=== PATIENT | female | born 1970 | race Caucasian/White ===

== ENCOUNTER 2023-05-03 07:32 | Outpatient (OUT) | payer BC, SELFPAY ==
[2023-05-03 08:41] LABS: Alanine Aminotransferase 28 U/L (14-59); Albumin Level 3.6 g/dL (3.4-5.0); Alkaline Phosphatase 69 U/L (46-116); Anion Gap 9.4; Aspartate Amino Transferase 17 U/L (15-37); BUN Creatinine Ratio 29.6; Bilirubin Total 0.6 mg/dL (0.2-1.0); Calcium 8.8 mg/dL (8.5-10.1); Carbon Dioxide 30.3 mmol/L (21.0-32.0); Chloride 104 mmol/L (98-107); Chol HDL Ratio 2.8; Cholesterol 230 mg/dL (<=200); Estimated GFR (African America >60 (>=60); Estimated GFR (Non-African Ame >60 (>=60); Globulin 3.6 g/dL; Glucose 90 mg/dL (74-106); HDL Cholesterol 83 mg/dL (40-60); Potassium 3.7 mmol/L (3.5-5.1); Sodium 140 mmol/L (136-145); Total Protein 7.2 g/dL (6.4-8.2); Triglycerides 57 mg/dL (<=150); VLDL CHOLESTEROL 11.4 mg/dL
== END 2023-05-03 07:33 | disposition home or self-care (01) ==
LOC: LAB 07:35
PROVIDERS: PCP Family Medicine; Visit Provider Family Medicine
DX: E78.2 Mixed hyperlipidemia (principal); I12.9 Hypertensive chronic kidney disease with stage 1 through stage 4 chronic kidney disease, or unspecified chronic kidney disease
CPT/HCPCS: 36415; 80053; 80061

== ENCOUNTER 2024-05-18 06:56 | Outpatient (OUT) | payer BC, SELFPAY ==
--- OUTSIDE RECORDS SUMMARY | 2024-05-18 07:02 | XMS_ITS | CCD ---
Author Organization [facility] Care Team Providers Care Deputy Sheriff Generalist Name Role Phone PHYSICIAN, DEFAULT Unavailable Unavailable PHYSICIAN, DEFAULT Unavailable Unavailable PHYSICIAN, DEFAULT Unavailable Unavailable PHYSICIAN, DEFAULT Unavailable Unavailable MARLEN, DR ALANIZ Admitting Unavailable MARLEN, DR ALANIZ Attending Unavailable MARLEN, DR ALANIZ Primary Care Unavailable CHIQUIYER, DR ALANIZ Admitting Unavailable CHIQUIYER, DR ALANIZ Attending Unavailable MARLEN, DR ALANIZ Primary Care Unavailable MARLEN, DR ALANIZ Consulting Unavailable CAMERON COCHRAN Admitting Unavailable CAMERON COCHRAN Attending Unavailable MARLEN, DR ALANIZ Primary Care Unavailable CAMERON COCHRAN Consulting Unavailable Alfredo Gee MD Primary Care Provider ALFREDO GEE Attending ALFREDO Vickers Referring Unavailable ALFREDO GEE Attending Unavailable ALFREDO GEE Attending Unavailable Alfredo Gee MD Primary Care Provider [phone] Alfredo Gee MD Primary Care Provider MARIANO BROWNLEE Referring Unavailable ALFREDO GEE Primary Care Unavailable Medications Current Medications Medication Drug Class(es) Dates Sig (Normalized) Sig (Original) calcium carbonate 1500 mg / cholecalciferol 500 unt oral capsule (1 source) Vitamin D Calcium Carb-Cholecalciferol 600-12.5 MG-MCG CAPS Take by mouth daily Active calcium citrate 1040 mg oral tablet (4 sources) calcium citrate 1040 MG tablet Take 1,200 mg by mouth in the morning and 1,200 mg before bedtime. Active cephalexin 500 mg oral capsule (4 sources) Cephalosporin Antibacterial Start: 07-14-2023 cephalexin (Keflex) 500 MG capsule Indications: History of unicondylar arthroplasty of left knee Take two caps evening prior to appointment, take two caps one hour prior to appointment 4 capsule 2 07/14/2023 Active cholecalciferol 0.025 mg oral capsule (5 sources) Vitamin D Cholecalciferol (VITAMIN D3) 1000 units CAPS Take by mouth 2 times daily Active take 1 capsule by mouth [facility] cholecalciferol (Vitamin D-3) 25 MCG (1000 UT) capsule Take 1,000 Units by mouth in the morning and 1,000 Units before bedtime. Active estradiol 0.1 mg/ml vaginal cream (1 source) Estrogen Start: 05-10-2024 estradiol (EST RACE VAGINAL) 0.1 MG/GM vaginal cream insert one inch of cream inside the vagina and place an additional dime size amount to the urethra and inner labia three nights per week. DO NOT use plastic applicator. 42.5 g 3 05/10/2024 Active Ginkgo biloba extract (5 sources) [facility] GINKGO BILOB A PO Take by mouth 2 times daily Active take 3 tablets by mouth in the [facility] Ginkgo Biloba 40 MG tablet Take 120 mg by mouth in the morning and 120 mg before bedtime. Active Gbfgsnqnzdu-Xgerbukge-Jfh C-Mn (GLUCOSAMINE CHONDR 500 COMPLEX PO) (1 source) Glucosamine-Jose Martin droit-Vit C-Mn (GLUCOSAMINE CHONDR 500 COMPLEX PO) Take by mouth 2 times daily Active losartan potassium 100 mg oral tablet (8 sources) Angiotensin 2 Receptor Loretta Sta rt: 3 End : 4 take 1 tablet by mouth once daily losartan (Cozaar) 100 MG tablet Indications: Primary hypertension (CMS/HCC) Take 1 tablet (100 mg) by mouth Daily 90 tablet 12/19/2023 Active Lutein (1 source) take 2 capsules by mouth once daily [facility] LUTEIN PO Take 2 capsules by mouth daily Active Misc Natural Products (Glucosamine Chond Double Str) tablet (5 sources) Misc Natural Pro ducts (Glucosamine Chond Double Str) tablet as directed Orally Active Misc Natural Pro ducts (Glucosamine Chond Double Str) tablet as directed Orally 0 Active Multiple Vitamin (MULTI ZURI MIN DAILY PO) (1 source) Multiple Vitamin (MULTI VITAMIN DAILY PO) Take by mouth 2 times daily Active Multiple Vitamins-Minerals ( Multi For Her 50+) tablet (5 sources) Multiple Vitamin s-Minerals (Multi For Her 50+) tablet 1 (one) time each day at the same time. Active Multiple Vitamin s-Minerals (Multi For Her 50+) tablet 1 (one) time each day at the same time. 0 Active nebivolol 10 mg oral tablet (8 sources) Start: 12-06-2023 End: 06-16-2024 take 1 tablet by mouth once daily nebivolol (Bystolic) 10 MG tablet Indications: Primary hypertension (CMS/HCC) Take 1 tablet (10 mg) by mouth Daily 90 tablet 1 12/19/2023 06/16/2024 Active Start: 08-23-2023 End: 11-21-2023 take 1 tablet by mouth once daily nebivolol (Bystolic) 10 MG tablet Indications: Essential hypertension (CMS/HCC) Take 1 tablet (10 mg) by mouth Daily 90 tablet 08/23/2023 11/21/2023 Active Start: 02-17-2023 End: 05-18-2023 take 1 tablet by mouth in the morning nebivolol (Bystolic) 10 MG tablet Indications: Essential hypertension (CMS/HCC) Take 1 tablet (10 mg) by mouth in the morning. 90 tablet 0 02/17/2023 05/18/2023 Active prasterone 25 mg oral tablet (1 source) Start: 03-30-2022 take 1 tablet under the tongue at bedtime dehydroepiandrosterone (DHEA) 25 MG tablet 1 tablet sublingual at bedtime 0 03/30/2022 Active vit A,C and K-lhhmbm-gsqmgols (Ocuvite) tablet (5 sources) vit A,C and E-raman tein-minerals (Ocuvite) tablet as directed Orally Active vit A,C and E-raman tein-minerals (Ocuvite) tablet as directed Orally 0 Active Completed/Discontinued Medications Medication Drug Class(es) Dates Sig (Normalized) Sig (Original) black cohosh extract 40 mg oral capsule (3 sources) End: 12-19-2023 take 2 tablets by mouth once daily Black Cohosh 40 MG capsule Take 2 tablets by mouth Daily 12/19/2023 Discontinued (Therapy completed) take 2 tablets by mouth once jaya ly Black Cohosh 40 MG capsule Take 2 tablets by mouth Daily Active Problems Active Problems Problem Classification Problem Date Documented Date Episodic/Chronic Administrative/social admission (4 sources) Encounter for pre-employment examination; Translations: [ENCOUNTER FOR PRE-EMPLOYMENT EXAM] Onset: 01-21-2022 Episodic Complications of surgical procedures or medical care (5 sources) Postsurgical menopause; Translations: [Asymptomatic postprocedural ovarian failure] Onset: 08-28-2019 01-19-2023 Chronic Essential hypertension (13 sources) Essential hypertension; Translations: [Essential (primary) hypertension] Onset: 06-13-2017 01-25-2023 Chronic Genitourinary symptoms and ill-defined conditions (2 sources) Urge incontinence of urine; Translations: [Urge incontinence] Onset: 05-10-2024 05-10-2024 Chronic Genitourinary symptoms and ill-defined conditions (9 sources) Proteinuria, unspecified; Translations: [Microalbuminuria] Onset: 07-20-2017 01-19-2023 Episodic Hypertension with complications and secondary hypertension (8 sources) Hypertensive chronic kidney disease with stage 1 through stage 4 chronic kidney disease, or unspecified chronic kidney disease; Translations: [Hypertensive renal disease] Onset: 07-21-2020 01-19-2023 Chronic Osteoarthritis (5 sources) Osteoarthritis of left knee joint; Translations: [Unilateral primary osteoarthritis, left knee] Onset: 05-19-2020 01-19-2023 Chronic Other connective tissue disease (5 sources) Artificial knee joint present; Translations: [Presence of unspecified artificial knee joint] Onset: 09-29-2020 01-19-2023 Chronic Other diseases of bladder and urethra (6 sources) Hypertrophy of bladder; Translations: [Other specified disorders of bladder] Onset: 03-29-2023 03-29-2023 Chronic Other screening for suspected conditions (not mental disorders or infectious disease) (2 sources) Patient encounter status; Translations: [Encounter for screening for lipoid disorders] 12-19-2023 Episodic Past or Other Problems Problem Classification Problem Date Documented Date Episodic/Chronic Abdominal hernia (10 sources) Umbilical hernia; Translations: [Umbilical hernia without obstruction or gangrene] Onset: 4 03-29-2023 Episodic Disorders of lipid metabolism (9 sources) Mixed hyperlipidemia; Translations: [Mixed hypercholesterolemia and hypertriglyceridemia] Onset: 2 Resolved: 4 Chronic Heart valve disorders (5 sources) Heart murmur; Translations: [Cardiac murmur, unspecified] Onset: 9 01-19-2023 Episodic Menopausal disorders (5 sources) Drug therapy status; Translations: [Hormone replacement therapy] Onset: 0 Resolved: 4 01-19-2023 Episodic Results Test Name Value Interpretation Reference Range Facility Cult,Urineon 05-11-2024 Cult,Urine Specimen Description .CLEAN CATCH URINE Special Requests Site: Urine Culture NO GROWTH Report Status FINAL 05/11/2024 Normal [facility] Comment on above: Performed By: #### U #### [facility] [address] [place], [place] [id number] Arboriculture Teacher: Allen River MD [facility] [address] [place] [address] Arboriculture Teacher: Julio Marcano MD [facility] URINALYSIS, WITH MICROS COPICon 05-10-2024 Interpretation and review of laboratory results [facility]normal [facility]T,UR Negative NEG [facility] BLOOD, URINE TRACE Abnormal NEG [facility] CLARITY, URINE Clear CLEAR [facility] COLOR Yellow YEL [facility] EPITHELIAL CELLS None [facility] GLUCOSE,SEMI-QNT,UR Negative NEG mg/dL [facility] are PT KETONES, URINE Negative NEG mg/dL [facility] LEUKOCYTE ESTERASE TRACE Abnormal NEG [facility] NITRITE,UR Negative NEG [facility] 6 5.0 - 9.0 [facility] e PT PROTEIN, SEMI-QNT,UR Negative NEG mg/dL [facility] SPEC. GRAVITY,UR 1.01 1.010 - 1.020 [facility] URINE RBC'S None [facility] WBC'S None [facility] Normal 0.0 - 1 .0 EU/dL [facility] Original Ordering Provider: MARIANO BROWNLEE [facility]inalysis w/ Microon 2024 Bilirubin, SemiQt,Ur Negative Normal NEG [facility] Comment on above: Performed By: #### U AMIC #### [facility] [address] [place] [address] Arboriculture Teacher: Julio Marcano MD Blood, Urine TRACE Abnormal NEG [facility] Comment on above: Performed By: #### U AMIC #### [facility] [address] [place] [address] Arboriculture Teacher: Julio Marcano MD Clarity (U) Clear Normal CLEAR [facility] Comment on above: Performed By: #### U AMIC #### [facility] [address] [place] [address] Arboriculture Teacher: Julio Marcano MD Color (U) Yellow Normal YEL [facility] Comment on above: Performed By: #### U AMIC #### [facility] [address] [place] [address] [place] [address] Arboriculture Teacher: Julio Marcano MD Epithelial cells LM Ql (Urine sed) None Normal 0-25 [facility] Comment on above: Performed By: #### U AMIC #### [facility] [address] [place] [address] [place], [place] [id number] Arboriculture Teacher: Julio Marcano MD Glucose Ql (U) Negative Normal NEG [facility] Comment on above: Performed By: #### U AMIC #### [facility] [address] [place] [address] [place], [place] [id number] Arboriculture Teacher: Julio Marcano MD Ketones Ql (U) Negative Normal NEG [facility] Comment on above: Performed By: #### U AMIC #### [facility] [address] [place] [address] Dr[place], [place] [id number] Arboriculture Teacher: Julio Marcano MD Leukocyte esterase Test strip Ql (U) TRACE Abnormal NEG [facility] Comment on above: Performed By: #### U AMIC #### [facility] [address] [place] [address] [place] [address] Arboriculture Teacher: Julio Marcano MD Nitrite,Ur Negative Normal NEG [facility] Comment on above: Performed By: #### U AMIC #### [facility] [address] [place] [address] Arboriculture Teacher: Julio Marcano MD PH,Ur 6.0 Normal 5.0-9.0 [facility] Comment on above: Performed By: #### U AMIC #### [facility] [address] [place], [place] [id number] Arboriculture Teacher: Julio Marcano MD Protein Ql (U) Negative Normal NEG [facility] Comment on above: Performed By: #### U AMIC #### [address] [place], [place] [id number] Arboriculture Teacher: Julio Marcano MD Spec. [place],Ur 1.010 Normal 1.010-1.020 [facility] Comment on above: Performed By: #### U AMIC #### [facility] [address] [place] [address] [place], [place] [id number] Arboriculture Teacher: Julio Marcano MD Urine RBC's None Normal 0-2 [facility] Comment on above: Performed By: #### U AMIC #### [address] [place] [address] Arboriculture Teacher: Julio Marcano MD Urine WBC's None Normal 0-5 [facility] Comment on above: Performed By: #### U AMIC #### [facility] [address] [place] [address] [place] [address] Arboriculture Teacher: Julio Marcano MD Urobilinogen,Ur Normal Normal 0.0-1.0 [facility] Comment on above: Performed By: #### U AMIC #### [address] [place], [place] [id number] Arboriculture Teacher: Julio Marcano MD Urinalysis with Microscopico n 05-10-2024 Bilirubin Ql (U) Negative NEGATIVE [facility] Clarity (U) Clear Clear [facility] Color (U) Yellow [facility] Epithelial cells LM.HPF (Urine sed) [#/Area] None [facility] Glucose Test strip (U) [Mass/Vol] Negative NEGATIVE mg/dL [facility] Hemoglobin Auto test strip Ql (U) TRACE Abnormal NEGATIVE [facility] Interpretation and review of laboratory results Abnormal [facility] Ketones (U) [Mass/Vol] Negative NEGATIVE mg/dL [facility] Leukocyte esterase Test strip Ql (U) TRACE Abnormal NEGATIVE [facility] Nitrite Ql (U) Negative NEGATIVE [facility] pH (U) 6.0 [pH] 5.0 - 9.0 [facility] Protein (U) [Mass/Vol] Negative NEGATIVE mg/dL [facility] RBC LM.HPF (Urine sed) [#/Area] None [facility] Specific gravity (U) [Rel density] 1.010 1.010 - 1.020 [facility] Urobilinogen Qn (U) Normal 0.0 - 1. 0 EU/dL [facility] WBC LM.HPF (Urine sed) [#/Area] None [facility] ALL LIPID PROFILE (FASTING)o n 05-03-2023 CHOL HDL RATIO 2.8 [facility] Comment on above: 3.3 - 4.4 LOW RISK 4.4 - 7.1 AVERAGE RISK 7.1 - 11.0 MODERATE RISK >11.0 HIGH RISK Cholesterol [Mass/Vol] 230 mg/dL High NINF - 200 mg/dL [facility] Cholesterol in HDL [Mass/Vol] 83 mg/dL High 40 - 60 mg/dL [facility] Comment on above: > or =60 mg/dl - LOW CARDIOVASCULAR RISK <40 mg/dl - HIGH CARDIOVASCULAR RISK Magnesium [Mass/Vol] 136.0 mg/dL [facility] Comment on above: <100 mg/dl OPTIMAL 100-129 mg/dl NEAR OR ABOVE OPTIMAL 130-159 mg/dl BORDERLINE HIGH 160-189 mg/dl HIGH >190 mg/dl VERY HIGH Magnesium [Mass/Vol] 11.4 mg/dL [facility] Triglyceride [Mass/Vol] 57 mg/dL NINF - 150 mg/dL [facility] CMP (CMP) (FOR REMOTE FH C USE)on 05-03-2023 Albumin [Mass/Vol] 3.6 g/dL 3.4 - 5.0 g/dL NO [facility] ALBUMIN GLOBULIN RATIO 1.0 [facility] ALP [Catalytic activity/Vol] 69 U/L 46 - 116 U/L [facility] ALT [Catalytic activity/Vol] 28 U/L 14 - 59 U/L [facility] Anion gap [Moles/Vol] 9.4 mmol/L [facility] AST [Catalytic activity/Vol] 17 U/L 15 - 37 U/L [facility] Bilirubin [Mass/Vol] 0.6 mg/dL 0.2 - 1 .0 mg/dL [facility] Calcium [Mass/Vol] 8.8 mg/dL 8.5 - 10. 1 mg/dL [facility] Chloride [Moles/Vol] 104 mmol/L 98 - 10 7 mmol/L [facility] CO2 [Moles/Vol] 30.3 mmol/L 21.0 - 32.0 mmol/L [facility] Creatinine [Mass/Vol] 0.54 mg/dL Low 0.55 - 1.02 mg/dL [facility] GFR/1.73 sq M.predicted CKD-EPI (S/P/Bld) [Vol rate/Area] >60 60 - PINF [facility] Globulin (S) [Mass/Vol] 3.6 g/dL [facility] Glucose [Mass/Vol] 90 mg/dL 74 - 106 mg/dL NO [facility] Potassium [Moles/Vol] 3.7 mmol/L 3.5 - 5.1 mmol/L [facility] Protein [Mass/Vol] 7.2 g/dL 6.4 - 8.2 g/dL NO [facility] Sodium [Moles/Vol] 140 mmol/L 136 - 145 mmol/L [facility] TBH EGFR-NON AF KENYAN >60 60 - PINF [facility] Urea nitrogen [Mass/Vol] 16.0 mg/dL 7.0 - 18.0 mg/dL [facility] Urea nitrogen/Creatinine [Mass ratio] 29.6 mg/mg [facility] No Panel Informationon 05-03 Interpretation and review of laboratory results Abnormal [facility] IV CONT RASTon 01-08-2024 CT ABDOMEN PELVIS WO IV CONTRAST CT of the abdomen and Pelvis CTDI is 27.51 mGy and DLP is 1200.45 mGy-cm. Technique: CT of the abdomen and pelvis performed without contrast. Reformatted sagittal and coronal images were also obtained. Findings: Comparison: No prior Lung bases: Unremarkable. No mass. No consolidation. Atelectasis is seen greater in the left base. ABDOMEN: Liver: Unremarkable. No mass. Gallbladder and bile ducts: Unremarkable. No calcified stones. No ductal dilation. Pancreas: Unremarkable. No mass. No ductal dilation. Spleen: Unremarkable. No splenomegaly. Adrenals: Unremarkable. No mass. Kidneys and ureters: No hydronephrosis or obstructing stone. Stomach and bowel: Small hiatal hernia is seen. Evaluation of the stomach is limited by under distention. No small bowel obstruction. No mucosal thickening. Intraperitoneal space: Unremarkable. No free air. No significant fluid collection. Bones/joints: Severe levoscoliosis is seen with the apex for at L2-3. Severe degenerative changes are seen at L5-S1 and there also is anterolisthesis of L5 on S1 that measures approximately 9 mm. Soft tissues: A periumbilical hernia is seen that measures approximately 13 mm in the area of the mouth. It contains fat. There are also bilateral inguinal hernias that contain fat.. Vasculature: Unremarkable. No abdominal aortic aneurysm. Lymph nodes: No bulky adenopathy PELVIS: Appendix: Normal appendix. Bladder: The bladder wall appears to be mildly thickened. In the anterior aspect of the bladder slightly to the right of midline there are 2 tiny foci of air reproductive: Unremarkable as visualized. IMPRESSION: Impression: No hydronephrosis or obstructing calcifications are seen. There are subtle small vague hypodensities seen that could relate to patient's state of hydration. 2 tiny foci of air are seen in the anterior bladder. The bladder wall is mildly thickened. No bowel obstruction, appendicitis or diverticulitis seen. ELECTRONICALLY SIGNED BY: Ramiro Chiu, DO Normal Not Available Comment on above: Order Comment: Patie nt paying thomas, please schedule KARMEN. QUANTIFERON TB GOLD PLUSon 1 03-25-2021 QuantiFERON Criteria Comment Normal [facility] Comment on above: Result Comment: Jesus tiFERON-TB Gold Plus is a qualitative indirect test for M tuberculosis infection (including disease) and is intended for use in conjunction with risk assessment, radiography, and other medical and diagnostic evaluations. The QuantiFERON-TB Gold Plus result is determined by subtracting the Nil value from either TB antigen (Ag) value. The Mitogen tube serves as a control for the test. Performed By: #### Q NTTB #### [facility] [address] [place] [address] Dr. Ivette Bruce QuantiFERON Incubation Incubation performed. Normal [facility] Comment on above: Performed By: #### Q NTTB #### [facility] [address] [place] [address] Dr. Ivette Bruce QuantiFERON Mitogen Value 6.10 IU/mL Normal [facility] Comment on above: Performed By: #### Q NTTB #### [facility] [address] [place] [address] Dr. Ivtete Bruce QuantiFERON Nil Value 0.00 IU/mL Normal [facility] Comment on above: Performed By: #### Q NTTB #### [facility] [address] [place] [address] Dr. Ivette Bruce QuantiFERON TB1 Ag Value 0.09 IU/mL Normal [facility] Comment on above: Performed By: #### Q NTTB #### [facility] [address] [place] [address] Dr. Ivette Bruce QuantiFERON TB2 Ag Value 0.03 IU/mL Normal [facility] Comment on above: Performed By: #### Q NTTB #### [facility] [address] [place] [address] Dr. Ivette Bruce QuantiFERON-TB Gold Plus Negative Normal Negative [facility] Comment on above: Result Comment: No r esponse to M tuberculosis antigens detected. Infection with M tuberculosis is unlikely, but high risk individuals should be considered for additional testing (ATS/IDSA/CDC Clinical Practice Guidelines, 2017). The reference range is an Antigen minus Nil result of <0.35 IU/mL. Chemiluminescence immunoassay methodology Performed By: #### Q NTTB #### [facility] [address] [place] [address] Dr. Ivette Bruce HEPATITIS B SURFACE ANTIBODY , QUANTon 01-22-2022 Hepatitis B Surf AB Quant >1000.0 Normal Immunity>9.9 [facility] Comment on above: Result Comment: Stat us of Immunity Anti-HBs Level Inconsistent with Immunity 0.0 - 9.9 Consistent with Immunity >9.9 Performed By: #### H EPBSRF #### [facility] [address] [place] [address] Dr. Ivette Bruce MMR IMMUNITYon 01-22-2022 Mumps Abs, IgG >300.0 Normal Immune >10.9 [facility] Comment on above: Result Comment: Nega tive <9.0 Equivocal 9.0 - 10.9 Positive >10.9 A positive result generally indicates past exposure to Mumps virus or previous vaccination. Performed By: #### M MRIMMU #### [facility] [address] [place] [address] Dr. Ivette Bruce Rubella Antibodies, IgG 11.60 index Normal Immune >0.99 [facility] Comment on above: Result Comment: Non- immune <0.90 Equivocal 0.90 - 0.99 Immune >0.99 Performed By: #### M MRIMMU #### [facility] [address] [place] [address] Dr. Ivette Bruce Rubeola Ab, IgG 29.2 AU/mL Normal Immune >16.4 [facility] Comment on above: Result Comment: Nega tive <13.5 Equivocal 13.5 - 16.4 Positive >16.4 Presence of antibodies to Rubeola is presumptive evidence of immunity except when acute infection is suspected. Performed By: #### M MRIMMU #### [facility] [address] [place] [address] Dr. Ivette Bruce VARICELLA IGG ABon 2 Varicella Zoster IgG 1722 index Normal Immune >165 [facility] Comment on above: Result Comment: Nega tive <135 Equivocal 135 - 165 Positive >165 A positive result generally indicates exposure to the pathogen or administration of specific immunoglobulins, but it is not indication of active infection or stage of disease. Performed By: #### V LAXMI #### [facility] [address] [place] [address] Dr. Ivette Bruce LIPID PROFILEon 01-04-2022 CHOL-HDL RATIO NORM SEE BELOW Normal [facility] Comment on above: Result Comment: 3.3 - 4.4 LOW RISK 4.4 - 7.1 AVERAGE RISK 7.1 - 11.0 MODERATE RISK >11.0 HIGH RISK Performed By: #### C MP, LIPID #### [facility] [address] [address] [address] Ivette Bruce Cholesterol [Mass/Vol] 217 mg/dL Critically high <=200 [facility] Comment on above: Performed By: #### C MP, LIPID #### [facility] [address] [place] [address] Dr. Ivette Bruce Cholesterol in HDL [Mass/Vol] 73 mg/dL Critically high 40-60 [facility] Comment on above: Performed By: #### C MP, LIPID #### [facility] [address] [place] [address] Dr. Ivette Bruce Cholesterol in LDL [Mass/Vol] 130.8 mg/dL Normal [facility] Comment on above: Performed By: #### C MP, LIPID #### [facility] [address] [place] [address] Dr. Ivette Bruce Cholesterol.total/Ch olesterol in HDL [Mass ratio] 3.0 {ratio} Normal [facility] Comment on above: Performed By: #### C MP, LIPID #### [facility] [address] [place] [address] Dr. Ivette Bruce HDL NORMAL > or = 60 mg/dl - LOW CARDIOVASCULAR RISK <40 mg/dl - HIGH CARDIOVASCULAR RISK Normal [facility] Comment on above: Performed By: #### C MP, LIPID #### [facility] [address] [place] [address] Dr. Ivette Bruce LDL CALC NORMAL SEE BELOW Normal [facility] Comment on above: Result Comment: <100 mg/dl OPTIMAL 100 - 129 mg/dl NEAR OR ABOVE OPTIMAL 130 - 159 mg/dl BORDERLINE HIGH 160 - 189 mg/dl HIGH >190 mg/dl VERY HIGH Performed By: #### C MP, LIPID #### [facility] [address] [address] [address] Ivette Bruce Triglyceride [Mass/Vol] 66 mg/dL Normal <=150 [facility] Comment on above: Performed By: #### C MP, LIPID #### [facility] [address] [address] [address] Ivette Bruce VLDL CALC 13.2 mg/dL Normal [facility] Comment on above: Performed By: #### C MP, LIPID #### [facility] [address] [place] [address] Dr. Ivette Bruce PROF 14(COMP METB)on 022 Albumin [Mass/Vol] 3.9 g/dL Normal 3.4-5.0 [facility] Comment on above: Performed By: #### C MP, LIPID #### [facility] [address] [place] [address] Dr. Ivette Bruce Albumin/Globulin [Mass ratio] 1.1 {ratio} Normal [facility] Comment on above: Performed By: #### C MP, LIPID #### [facility] [address] [place] [address] Dr. Ivette Bruce ALP [Catalytic activity/Vol] 65 U/L Normal 46-116 [facility] Comment on above: Performed By: #### C MP, LIPID #### [facility] [address] [place] [address] Dr. Ivette Bruce ALT [Catalytic activity/Vol] 23 U/L Normal 14-59 [facility] Comment on above: Performed By: #### C MP, LIPID #### [facility] [address] [place] [address] Dr. Ivette Bruce Anion gap [Moles/Vol] 11.6 mmol/L Normal [facility] Comment on above: Performed By: #### C MP, LIPID #### [facility] [address] [place] [address] Dr. Ivette Bruce AST [Catalytic activity/Vol] 13 U/L Critically low 15-37 [facility] Comment on above: Performed By: #### C MP, LIPID #### [facility] [address] [address] [address] Ivette Bruce Bilirubin [Mass/Vol] 0.5 mg/dL Normal 0.2-1.0 [facility] Comment on above: Performed By: #### C MP, LIPID #### [facility] [address] [address] [address] Ivette Bruce Calcium [Mass/Vol] 8.8 mg/dL Normal 8.5-10.1 [facility] Comment on above: Performed By: #### C MP, LIPID #### [facility] [address] [address] [address] Ivette Bruce Chloride [Moles/Vol] 104 mmol/L Normal 98-107 [facility] Comment on above: Performed By: #### C MP, LIPID #### [facility] [address] [place] [address] Dr. Ivette Bruce CO2 [Moles/Vol] 27.2 mmol/L Normal 21.0-32.0 [facility] Comment on above: Performed By: #### C MP, LIPID #### [facility] [address] [place] [address] Dr. Ivette Bruce Creatinine [Mass/Vol] 0.57 mg/dL Normal 0.55-1.02 [facility] Comment on above: Performed By: #### C MP, LIPID #### [facility] [address] [place] [address] Dr. Ivette Bruce EGFR-AF KENYAN >60 Normal >=[address] [facility] Comment on above: Performed By: #### C MP, LIPID #### [facility] [address] [place] [address] Dr. Ivette Bruce EGFR-NON AF KENYAN >60 Normal >=60 [facility] Comment on above: Performed By: #### C MP, LIPID #### [facility] [address] [place] [address] Dr. Ivette Bruce Globulin (S) [Mass/Vol] 3.4 g/dL Normal [facility] Comment on above: Performed By: #### C MP, LIPID #### [facility] [address] [address] [address] Ivette Bruce Glucose [Mass/Vol] 89 mg/dL Normal 74-106 [facility] Comment on above: Performed By: #### C MP, LIPID #### [facility] [address] [address] [address] Ivette Bruce Potassium [Moles/Vol] 3.8 mmol/L Normal 3.5-5.1 [facility] Comment on above: Performed By: #### C MP, LIPID #### [facility] [address] [address] [address] Ivette Bruce Protein [Mass/Vol] 7.3 g/dL Normal 6.4-8.2 [facility] Comment on above: Performed By: #### C MP, LIPID #### [facility] [address] [address] [address] Ivette Bruce Sodium [Moles/Vol] 139 mmol/L Normal 136-145 [facility] Comment on above: Performed By: #### C MP, LIPID #### [facility] [address] [address] [address] Ivette Bruce Urea nitrogen [Mass/Vol] 16.0 mg/dL Normal 7.0-18.0 [facility] Comment on above: Performed By: #### C MP, LIPID #### [facility] [address] [place] [address] Dr. Ivette Bruce Urea nitrogen/Creatinine [Mass ratio] 28.1 mg/mg Normal [facility] Comment on above: Performed By: #### C MP, LIPID #### [facility] [address] [address] [address] Ivette Bruce Coding Summary.on 09-25-2020 Coding Summary. CD:[id number] Gh0bWw+PGhlYWQ+PE1FV JXdY37jhXBivQ6JW2bWU W1PCCOHZFCRMH8SXX1ko OC8UAvdZ9RbgpYx RscxlQVdYI86QZe3BYU4 kBowKMgppD1pnZEeR4z3 OzHbZV33yI44RHrgYWNm MeK1YsBkcnavsIHl G5ejBhVnyHMxGve+PHRh YmxlIHdpZHRoPScxMDAl XtKnaIiaNO7nUj7yZPNp LWNvbGxhcHNlOiBj s0keOVXlTLerOU7xjBat H7EqeTQ3DHSju4j8Ge29 dHI+KOEbAYZ3uRjkINoc b874BeMfj3skNSJ4 wNEwJHejIQO6Q41kh4F2 HFWyASJwZTO0oKT0qE0a cJobvxvnI3GctKMpSmE4 HWO0uKZyvC6kpPyv pvtvsU7eWff+B70RHZ1A RVHNET6VCmq9H2HfTuoa dHI+LH47QZJqAG66wDAn fVVcl0auqTt3HnMd EKDsELQ2cPziQInau7Gy PHZvL21umOWtk3N8AJDw bCqrqXDvQwHgoAF9mS3o DYfyrugba0tenade Ifwwq5zjyi36vH28Q48h BAauYWHtIGL6HKDsOHAu oRdqgf5zvG4qMn8+IDxj g2elh0eaaFe7HpEj FVItbaEujDpcUZX0f9Rv Ee57K4DefKfhv9YsAlg2 fb83xSHvt9Z2xGB4JVyk FZWelP1cWNkkTrD5 XYTbIeEdsH40iAKrHHot Pu3yoGwdnJdeFW6wXRMo ykhbLNHpoD5gMAMmgMKn tLawPW6aUWKssudq l680HcIqPFE3KYUqxSZe O7MuvS8yIdHbVCLxIBOj Z2BbdBDqUIcvS674DFba BgE4BLDpigXpP6Jp VVVqrExqIyE0t4N3Py0Q w3PcpmwzWOZ9UDfyOLP0 AkO2BiHtJaO3R0WzIud5 WUTeeRejWQ8zS9Md WULtqpxturbejYR6HDHs JBJgkJ53iRHfJYshSw6t l1M7n738KCJvIUUwuD13 Qo4azGkdXTBriHTA hR5thejmk4gvkmatOaWr ANTnYCy4HXn9LKKquDkj VcZcEQZ7SdE5EAA0cZVx wJ4mqHafykendF0d Oyc+P15frG1uFCE6SNV9 nirbSAEregLqDL52LR76 R9HvPsihrKDcjCZ+PGRp oxRkhJtqBA6gGkZf x1sgd4JfAIdtK4KbFBQm WJmwCdb5LMMnGQF6sMD1 eD1dAZNzIEnvx9R0wOS5 H3UvtbQxmt5nq8mr SLIjRVrtI77tbXOhb3F0 JDVmbHN2XOOqhLntSsJd yU01Bdx+STPgrHmjj9Mk Dfbpp8djg6iyxOi0 IjMwJSIgdmFsaWduPSJ0 h9AuAh51U45nRSpcYKTt CMZpKRQzSEFwdWdimu8q cZ4mQj7+PGNvbCB3 eFW7nA9hHLUeFqR1UPrm K525VyAwjZNnVqtww2ll k9vmpIu4UgQpXSDknwGp hKroXQP9p9BkPb27 Q50uOEtxPUEkZNNcWZQi NYTkxCdoqv3knW2dCs9+ FR6ke3afly44hK50tXD+ CMCxVEM8zLtfNKvw DZUsaI8uYRveZdM5DZSv ToHmuU38vWNbNJuhEh5c lWfjyCkoEL2sOXWhfjxi r852SvStg7ylEHPd tFChNWecOTS9B02hh0O7 NFEhJQAuWJU9xUB9bZ4f bGlnbjogbGVmdDsgdmVy lWltTGapJRhlB825 IHRvcDsnPlBhdGllbnQg MjCwJPj5A9InKsx1TNYg mBoxCF8xdLCjOApoZm7f cXfraVwoVN3hSVWp wiaiy165TuPcv4oiCGIq gEWlEFgkMDM2P13lq4Y9 XPNxMLYlKZT1gDY4iF3i bGlnbjogbGVmdDsg toFguHlkLBqlXQdlJ726 IHRvcDsnPkJpcnRoIERh dHC0DN76NG27iEPoy6W1 cWC9Q2LlHRAazusb fwolgPC4RAYqMTKtwG69 Yt3tgQxcBg7yFCJyUWF9 JAWheFPfE7JhdD9cLrYs IWJmSBZeE4QejHXt PTlfX960VMrlSeP1MJIb qyVeL1OzJGEihYmeQlQ6 z4M4Xg1BM2W0ET84BW18 vNNeh5N3uCB5I7Qz VQRgcufksobbsYV2YZRb FLWhpA18Wr8smIxqSx7a EIMxVQI1FXQdcBCvN4Qv rY5mRsVuCRHxPTFa C9ZzfPAbXHruM523FLrj ZuZ6IIMcqlSvT2NrCZAj wDeuTaF4g4U8Iw5HGRz4 UN91XA67oEHzc5S6 sER4R5UmARKwojorhzxj oRJ7CAGzZCMkyV35Oa1y yZyhFf6kJYTpTXG1ROPz oCNpM5GbyA2yJhFf QFCkIOLuG6EjgSHdEHmx D631JBlgOzC1RLFrzlVm A3NbQQRwbAyrMlF0r8J5 Yj9NYHMaSD27ZWZ2 wUD3FL51TZ94D0UwMpma dGFibGU+PHRhYmxlIHdp ZHRoPScxMDAlJyBzdHls EH0tVv3fTWRwPQTf bFapnFPaYjRhj0gePCRz KKzaHR5heXytE3QxvJR0 FSZzx6t6Nu88F83bR4Yu dXA+XDUapAO3jHI8 aB4kOzShIzQ4QArcA701 QcRfiRRwUssqr9rpy3lt bAe4AxD8WPEempVamDof GAW3x7CdXs32Q80h IHdpZHRoPSIxNSUiIHZh tKfrbr8jbY9mDz8+PGNv sHJ7hMD0sH9bAhXkEpV8 ESixO759YmRddTQs Bgiev9wft4dxjXi3GuTh SYRypaYsvRbkVGF9o1Dw Cw68B4TunPesn1PxMdo5 rp68uKXcq4J6xMG9 V4OvLHAwzemigUJlnRzt PO2cLOHucqyvTKKvfS9y EBHeM0g3OcQbZnD4GUpf O5XrpxF8ADQjtVUs XBuuHJS5F47rx6X5SXEu ZIRqABQ4gII1wG3zfNgz bjogbGVmdDsgdmVydGlj OKkhKGtiD640WOFl cKciFWDthE3fGYSvvOLx dXzxTF8oYLAwjusfHr1U N6fBEBmOHVNdAJ2SXhnX BD73BG28wRXuo9A3 sXA8T0ZdUTLgxbkyvyay nMV5KFYgVZStaK65tVVa LOvwRf6cm1O9n429IGNo XCMthI34Xs3usTuf EEQucTDKbH8lidnmm4dj cgzuWmZgPYVcHNh0SBz0 DTQdbWloHbRcHCR1TiX0 ELH5hDQyzL7izRnk hzpvlJ3gIoq+MDEvMTYv MQs1AmvzfLG+PHRkIHN0 tBqcXSrhNHPewG7xCEGy M1y7RrBxPdX0GDkq X5EmTSMwrpdzZi82zR9p WjFgWtA0VFpwQ8KlblJ4 ZOZrwJWiWDprMGG7A43l g4S5OYBtISCcEEX5 eRX4gV5caDednoxigDKv dDsgdmVydGljYWwtYWxp X985TUBtqLseRdT9SGdo KVGeCN45AR26pLYg b9F8iYO7U8JfUHRbsnst fvdbfTF9FPGbOJTgiW22 vYCqGFnlWu4mk1N7l401 HBQkPDOweR01If3w dYxiPAJdaTACbQ0elfow a0ardtdwEcNaKQDcJXp4 NRg8YBTzdCpoDtCwCOM6 NvK1QBC8tBAvaA1y gAmeskydbY8aIjo+RmVt KQzsAF54TO20nULhh4R6 wMF8E7EeHFSowctmicop uQO8PGFaYMMklA74 iIRrQJbqSn8mt6L8a740 MDEiEGHzbE86An9qqCrw KAXnhZMSpY4xojqhm0to cjogIzAwMDAwMDt0 DWi6NYMdaAylXbDsHVH4 XcA4WSD5hIRbaR4crZsu wglgqN2kFqu+C8U3sTZ3 aWVudDwvdGQ+PC90 pm28Y0YqCrpjWws4HOUy CFJ0xWZ1qQ4pTNNxKNxb g2H2kKM3R0PsbtPqpq3p i0imXEOePKwmU84q nNHxb8D4NZPvtJN1RMIk eTycJqFglS69Ikz+PGNv hJnkw8DqOdplf5ccl2yt vPv1ZjFkIVBwoyRr tVhsCJJ7w5ZjWz00I40d IHdpZHRoPSIzMCUiIHZh iGwpfz7mmA0nEf4+PGNv pPW7cFU2eW8tXhKa SsM6QWceW745VpUpqVNm Rhwtw9lnl5nrfJw9LcMt OPPbexRieLvoRNN0g1Fi Wt82C8VzwZxyk6Rq Kes7qy34iNQwe7J4gCI0 Z8NcOPYedwrpzSYpiZzl ES4bGFBqynymVNZixX9z YTGfW7j3QtCvCzX3 PVyfI5PpkxG0ANGqpZJu SXIrqCNKtU0rimbva1vt qlqnQeGdJMPuTHc1MEm3 LWFsaWduOiBsZWZ0 JkC2YLQ4vNVfyN4jsGcp jzwuwB5qUgx+JBb2f7th pEHmQQ7rlQB3AN04DW20 cQRlw7B8gFI2H9Qw CTEjoskbnqrpaEG0UZQu SYNxaK52Pl6vnEwuJh0h WMUyWGF1NXBjqWYsC6Zl qT3hXlIzZQCrJBIt N4ZtoXVvDNyrG581JZba ClY4ULBqbpUuQ9UvNJAj dCfqKtJ8f9F7Ep9EXQ97 VA23HI19qHNux2I6 oJY5X0DoQKFhxotunhab fNE8VGLzKCJwsC46Fy8h sUsaUk3bMTLiUBA8XVOo iBPiG4GuhY6uVcYy OIJtDMBwV0OwvQYoWSym I669KCnzYwB2IFXvmxOz R4EmGHLgeRxuBqY7j8K0 Rc4QPo46TG74TF49 jWMin1G1tZZ8I3GxDKCq ltcuapbyuYL1JGTlTVNj wM17Ej8czDmyKc7pNNFe YZJ7VFOchQTqI8Nu dD0jFjHjPQDpUBJxC5Ad xIEeFOfyO791AOvvKmN3 MIHxzlVdX2XnQJJjvXva MyQ9b5D4Tk5UBIul tht3H6XjZlungJC+PC90 VNZdSM81qDBgpPPqg8dd cOt0RzElHUIlAHI3mHdp CZsbf4MpWXAdY40j bGFw (more content not included)... Normal [facility] Consent for Treatmenton Consent for Treatment [id number] Normal [facility] XR Chest 2 Viewson XR Chest 2 Views Exam Date/Time: 09/23/2020 12:29 EDT Reason for Exam: LEFT KNEE OA, PRE OP Report IMPRESSION: NO EVIDENCE OF ACTIVE CHEST DISEASE. CLINICAL HISTORY: LEFT KNEE OA, PRE OP. COMMENT: The heart is normal in size. The mediastinum is unremarkable. The lungs appear clear. No infiltration nor pleural effusion is evident. There is dextroscoliosis of the thoracic spine. FINAL REPORT Dictated: 09/24/2020 7:38 am Zach Kline M.D. Signed (Electronic Signature): 09/24/2020 7:38 am Signed by: Zach Kline M.D. Transcribed by: EDGAR Technologist: SON Normal [facility] Auto Diffon 09-23-2020 Basophils/100 WBC (Bld) 0.6 % Normal 0.0-2.0 [facility] Comment on above: Order Comment: Order Added by Discern Expert. Performed By: #### 1 [id number], [id number], [id number], [id number] #### [facility] [address] [place] [address] Basophils/Leukocytes Auto (Bld) [Pure # fraction] 0.0 E9/L Normal 0.0-0.2 [facility] Comment on above: Order Comment: Order Added by Discern Expert. Performed By: #### 1 [id number], [id number], [id number], [id number] #### [facility] [address] [place] [address] Eosinophils/100 WBC (Bld) 1.9 % Normal 0.0-8.0 [facility] Comment on above: Order Comment: Order Added by Discern Expert. Performed By: #### 1 [id number], [id number], [id number], [id number] #### [facility] [address] [place] [address] Eosinophils/Leukocyt es Auto (Bld) [Pure # fraction] 0.1 E9/L Normal 0.0-0.5 [facility] Comment on above: Order Comment: Order Added by Discern Expert. Performed By: #### 1 [id number], [id number], [id number], [id number] #### [facility] [address] [place] [address]662 Lymphocytes/100 WBC (Bld) 29.8 % Normal 14.0-50.0 [facility] Comment on above: Order Comment: Order Added by Discern Expert. Performed By: #### 1 [id number], 1077286, 8466113, [id number] #### [facility] [address] [place] [address] Lymphocytes/Leukocyt es Auto (Bld) [Pure # fraction] 2.0 E9/L Normal 1.0-4.0 [facility] Comment on above: Order Comment: Order Added by Raphael Expert. Performed By: #### 1 [id number], 6140069, 7925156, [id number] #### [facility] [address] [place] [address] Monocytes/100 WBC (Bld) 7.1 % Normal 4.0-14.0 [facility] Comment on above: Order Comment: Order Added by Discern Expert. Performed By: #### 1 [id number], 0760987, 5787791, [id number] #### [facility] [address] [place] [address]7814 Monocytes/Leukocytes Auto (Bld) [Pure # fraction] 0.5 E9/L Normal 0.2-1.0 [facility] Comment on above: Order Comment: Order Added by Discern Expert. Performed By: #### 1 [id number], 9098716, 4944734, [id number] #### [facility] [address] [place] [address] 32343 Neutrophils/100 WBC (Bld) 60.6 % Normal 36.0-75.0 [facility] Comment on above: Order Comment: Order Added by Raphael Expert. Performed By: #### 1 [id number], 2648551, 1451611, [id number] #### [facility] [address] [place] [address] 49096 Neutrophils/Leukocyt es Auto (Bld) [Pure # fraction] 4.1 E9/L Normal 2.0-7.5 [facility] Comment on above: Order Comment: Order Added by Discern Expert. Performed By: #### 1 [id number], 9175198, 7003875, 7125687 #### [facility] [address] [place] [address] BMPon 09-23-2020 Anion gap [Moles/Vol] 12 mmol/L Normal 6-16 [facility] Comment on above: Performed By: #### 1 [id number], 5589219, 5574195, 5720342 #### [facility] [address] [place] [address] Calcium [Mass/Vol] 9.4 mg/dL Normal 8.9-11.1 [facility] Comment on above: Performed By: #### 1 [id number], 7319536, 2949102, 2635586 #### [facility] [address] [place] [address] Chloride [Moles/Vol] 101 mmol/L Normal 101-111 [facility] Comment on above: Performed By: #### 1 [id number], 8481015, 6913458, 3660814 #### [facility] [address] [place] [address] CO2 [Moles/Vol] 30 mmol/L Normal 21-31 [facility] Comment on above: Performed By: #### 1 [id number], 4149431, 4122035, 5832900 #### [facility] [address] [place] [address] Creatinine [Mass/Vol] 0.5 mg/dL Normal 0.5-1.3 [facility] Comment on above: Performed By: #### 1 [id number], 5511292, 6960704, 6213777 #### [facility] [address] [place] [address] Glucose [Mass/Vol] 97 mg/dL Normal 55-199 [facility] Comment on above: Result Comment: If t his glucose result represents a fasting glucose, interpretation should refer to the following reference range: 55-99 mg/dL Performed By: #### 1 [id number], 2667362, 8374182, 2792987 #### [facility] [address] [place] [address] Potassium [Moles/Vol] 3.6 mmol/L Normal 3.5-5.3 [facility] Comment on above: Performed By: #### 1 [id number], 7538706, 5880843, 6166544 #### [facility] [address] [place] [address] Sodium [Moles/Vol] 139 mmol/L Normal 135-145 [facility] Comment on above: Performed By: #### 1 4769274, 8051480, 3828307, 2230732 #### [facility] [address] [place] [address] Urea nitrogen [Mass/Vol] 14 mg/dL Normal 5-21 [facility] Comment on above: Performed By: #### 1 [id number], 3766304, 5427547, 4794067 #### [facility] [address] [place] [address] Urea nitrogen/Creatinine [Mass ratio] 28 No Units High 10-20 [facility] Comment on above: Performed By: #### 1 [id number], 2340893, 9166986, 7323827 #### [facility] [address] [place] [address] CBC w/ Auto Diffon 1 Erythrocyte distribution width (RBC) [Ratio] 12.9 % Normal 10.9-14.2 [facility] Comment on above: Performed By: #### 1 [id number], 4810950, 3956764, 2721649 #### [facility] [address] [place] [address] Hematocrit (Bld) [Volume fraction] 38.8 % Normal 34.0-46.0 [facility] Comment on above: Performed By: #### 1 3471337, 3531605, 9949124, 1461345 #### [facility] [address] [place] [address] Hemoglobin (Bld) [Mass/Vol] 13.0 g/dL Normal 12.0-16.0 [facility] Comment on above: Performed By: #### 1 5239385, 6720061, 1845801, 2045776 #### [facility] [address] [place] [address] MCH (RBC) [Entitic mass] 29.3 pg Normal 27.0-34.0 [facility] Comment on above: Performed By: #### 1 2351458, 9706568, 1998593, 0033978 #### [facility] [address] [place] [address] MCHC (RBC) [Mass/Vol] 33.5 g/dL Normal 31.4-36.0 [facility] Comment on above: Performed By: #### 1 2568180, 3546896, 9415291, 0986923 #### [facility] [address] [place] [address]38 MCV (RBC) [Entitic vol] 87.4 fL Normal 80.0-100.0 [facility] Comment on above: Performed By: #### 1 [id number], 8983907, 8431172, 6429615 #### [facility] [address] [place] [address] Platelet mean volume (Bld) [Entitic vol] 10.5 fL Normal 6.4-10.8 [facility] Comment on above: Performed By: #### 1 [id number], 4566248, 9421216, 2628436 #### [facility] [address] [place] [address] Platelets (Bld) [#/Vol] 185.0 E9/L Normal 150.0-500.0 [facility] Comment on above: Performed By: #### 1 8129177, 7312659, 0327873, 5225893 #### [facility] [address] [place] [address] RBC (Bld) [#/Vol] 4.4 E12/L Normal 4.3-5.9 [facility] Comment on above: Performed By: #### 1 [id number], 2106559, 6213757, [id number] #### [facility] [address] [place] [address] WBC corrected for nucl RBC Auto (Bld) [#/Vol] 6.7 E9/L Normal 4.0-11.0 [facility] Comment on above: Performed By: #### 1 [id number] #### [facility] [address] [place] [address] COVID-19 ([facility])on 09-23-2020 SARS-CoV-2 (COVID-19) RNA JORY+probe Ql (Unsp spec) Not detected Normal Not Detected [facility] Comment on above: Result Comment: This test result should be correlated with clinical presentations and medical history by a healthcare provider to determine its clinical significance. This assay was performed by a reverse transcriptase real-time polymerase chain reaction (rt PCR) method on the [employer] system. This test has been authorized only for the detection of nucleic acid from SARS-CoV-2, not for any other viruses or pathogens. This test has not been FDA cleared or approved. This test has been authorized by FDA under an Emergency Use Authorization (EUA). This test is only authorized for the duration of time the declaration on that circumstances exist justifying the authorization emergency use of in vitro diagnostic tests for detection and/or diagnosis of COVID-19 infection under section 564 (b) (1) of the Act, 21 U.S.C. 360 bbb-3 (b) (1), unless authorization is terminated or revoked sooner. Performed By: #### 2 [id number] #### [facility] [address] [place] [address] SARS-CoV-2 (COVID-19) RNA JORY+probe Ql (Unsp spec) Pass Normal Pass [facility] Comment on above: Performed By: #### 2 [id number] #### [facility] [address] [place] [address] Specimen source Nom (Unsp spec) Nasal Normal [facility] Comment on above: Performed By: #### 2 [id number] #### [facility] [address] [place] [address] Consent for Treatmenton Consent for Treatment [id number] Normal [facility] eGFRon 09-23-2020 GFR/1.73 sq M.predicted among blacks MDRD (S/P/Bld) [Vol rate/Area] mL/min/{1.73_m2} Normal >=59 [facility] Comment on above: Order Comment: Order added by Discern Expert. Result Comment: eGFR is race adjusted. AA=. Performed By: #### 1 [id number] #### [facility] [address] [place] [address] GFR/1.73 sq M.predicted among non-blacks MDRD (S/P/Bld) [Vol rate/Area] mL/min/{1.73_m2} Normal >=59 [facility] Comment on above: Order Comment: Order added by Discern Expert. Result Comment: Film [employer]placement Orderer suzette kidney disease could be indicated at eGFR's of less than 60 mL/min/1.73m2. Kidney failure is indicated at less than 15 mL/min/1.73m2. Performed By: #### 1 [id number] #### [facility] [address] [place] [address] COVID-19 ([facility] [place]on 09-19-2020 Employed in Healthcare Unknown Normal [facility] Comment on above: Performed By: #### 2 [id number] #### [facility] [address] [place] [address] First Test Unknown Normal [facility] Comment on above: Performed By: #### 2 [id number] #### [facility] [address] [place] [address] Hospitalized? NO Normal [facility] Comment on above: Performed By: #### 2 [id number] #### [facility] [address] [place] [address] ICU NO Normal [facility] Comment on above: Performed By: #### 2 [id number] #### [facility] [address] [place] [address] ? NO Normal [facility] Comment on above: Performed By: #### 2 [id number] #### [facility] [address] [place] [address] Resides in a Congregate Care Setting NO Normal [facility] Comment on above: Performed By: #### 2 [id number] #### [facility] [address] [place] [address] Symptomatic as defined by [facility] NO Normal [facility] Comment on above: Performed By: #### 2 [id number] #### [facility] [address] [place] [address] Physician Orderon 08-06-2020 Physician Order [id number]#[id number]:127 Normal [facility] Coding Summaryon 11-02-2019 Coding Summary CODING DATE: 11/02/2019 [facility] STATUS: Home PAYOR: Commercial Insurance ADMIT DX: REASON FOR VISIT DX: R50.9 Fever, unspecified R43.2 Parageusia R43.0 Anosmia FINAL DX: PRINCIPAL: U07.1 2019-nCoV acute respiratory disease SECONDARY: PYMT PROC APC STAT DESCRIPTION DOCTOR NAME DATE NOTE: The code number assigned matches the documented diagnosis and / or procedure in the patient's chart. However, the narrative phrase printed from the coding software may appear abbreviated, or result in slightly different terminology. Coded By: Ashley Lopez Date Saved: 11/02/2019 03:25 pm [facility] Consent Formson 11-01-2019 Consent Forms [id number] #[id number] [facility] Provider [place] 10-31-2019 Provider Orders [id number] #1.00OTGTIFF Normal [facility] 2019 Novel Coronavirus (CoVI D-19), JORY LCon 10-30-2019 SARS-CoV-2, JORY (COVID-19) LC Detected Abnormal Not Detected [facility] Comment on above: Order Comment: [id number] 1 Result Comment: This test was developed and its performance characteristics determined by [employer]. This test has not been FDA cleared or approved. This test has been authorized by FDA under an Emergency Use Authorization (EUA). This test is only authorized for the duration of time the declaration that circumstances exist justifying the authorization of the emergency use of in vitro diagnostic tests for detection of SARS-CoV-2 virus and/or diagnosis of COVID-19 infection under section 564(b)(1) of the Act, 21 U.S.C. 360bbb-3(b)(1), unless the authorization is terminated or revoked sooner. When diagnostic testing is negative, the possibility of a false negative result should be considered in the context of a patient's recent exposures and the presence of clinical signs and symptoms consistent with COVID-19. An individual without symptoms of COVID-19 and who is not shedding SARS-CoV-2 virus would expect to have a negative (not detected) result in this assay. Performed At: [facility] [address] [place] [address] [place] [id number] Ofe Cash MD Ph:[phone] Results Called To Dr. Gee's office at [phone] By RR On 10/30/2019 21:00:01 EDT. Not able to reach or page Physician. Contacted Olga RN [facility] Administrator at 10/30/2019 21:07:55 EDT. This test was developed and its performance characteristics determined by [employer]. This test has not been FDA cleared or approved. This test has been authorized by FDA under an Emergency Use Authorization (EUA). This test is only authorized for the duration of time the declaration that circumstances exist justifying the authorization of the emergency use of in vitro diagnostic tests for detection of SARS-CoV-2 virus and/or diagnosis of COVID-19 infection under section 564(b)(1) of the Act, 21 U.S.C. 360bbb-3(b)(1), unless the authorization is terminated or revoked sooner. When diagnostic testing is negative, the possibility of a false negative result should be considered in the context of a patient's recent exposures and the presence of clinical signs and symptoms consistent with COVID-19. An individual without symptoms of COVID-19 and who is not shedding SARS-CoV-2 virus would expect to have a negative (not detected) result in this assay. Performed At: [facility] [address] [facility] [place] [id number] Ofe Cash MD Ph:[phone] Performed By: #### 6 [id number] #### [facility] (DEFAULT) [address] [place] [address] Provider [place] 10-30-2019 Provider Orders [id number] #[id number] Normal [facility] Encounters Encounter Date Encounter Type Care Provider Facility Start: 05-10-2024 End: 05-10-2024 ambulatory MARIANO BROWNLEE [facility] Start: 05-10-2024 End: 05-10-2024 Subsequent hospital visit by physician Alfredo Gee MD Work Phone: [facility] Comment on above: Microscopic hematuri a; Urge incontinence Start: 05-10-2024 End: 05-10-2024 Clinisync Result Encounter Generic External Data Provider [facility] Unsolicited Start: 05-10-2024 End: 05-10-2024 Clinisync Result Encounter Generic External Data Provider [facility] External [facility] Unsolicited Start: 12-19-2023 End: 12-19-2023 ambulatory ALFREDO GEE Not Available Start: 12-19-2023 End: 12-19-2023 Telemedicine consultation with patient Alfredo Gee MD Work Phone: [facility] Comment on above: Primary hypertension (CMS/HCC) (Primary Dx); Screening, lipid; Hypertensive nephropathy (CMS/HCC) Start: 11-15-2023 End: 11-16-2023 Refill Alfredo Gee MD Work Phone: [facility] Comment on above: Primary hypertension (CMS/HCC) Start: 05-23-2023 End: 05-23-2023 ambulatory ALFREDO GEE Not Available Start: 05-03-2023 Clinisync Result Encounter Alfredo Gee MD Work Phone: [facility] Unsolicited Start: 05-03-2023 Clinisync Result Encounter Alfredo Gee MD Work Phone: [facility] Unsolicited Start: 03-28-2023 End: 03-28-2023 ambulatory ALFREDO GEE Not Available Start: 03-23-2023 End: 03-23-2023 ambulatory ALFREDO GEE Not Available Start: 01-21-2022 End: 01-22-2022 ambulatory CAMERON ADLERLY Facility:[facility]1 Start: 01-04-2022 End: 01-05-[address] ALFREDO GEE Facility:[facility] Start: 04-15-[address] ALFREDO GEE Facil ity:[facility]1 Start: 03-24-2018 End: 03-25-2018 Patient encounter procedure DEFAULT PHYSICIAN Facility:[facility] Start: 03-20-2018 End: 03-21-2018 Patient encounter procedure DEFAULT PHYSICIAN Facility:[facility] Procedures Date Procedure Procedure Detail Performing Clinician Start: 05-10-2024 [facility] URINALYSIS, WITH MICROSCOPIC Generic External Data Provider Start: 05-10-2024 Urnls dip stick/tablet reagent auto microscopy Mariano Brownlee [employer] - [employer]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 Work Phone: Start: 05-03-2023 ALL LIPID PROFILE (FASTING) Alfredo Gee MD Work Phone: Start: 05-03-2023 [facility] CMP (CMP) (FOR REMOTE [facility] USE) Alfredo Gee MD Work Phone: Start: 09-28-2022 History of operative procedure on knee History of unicondylar arthroplasty of left knee Alfredo Gee MD Work Phone: Start: 08-23-2018 Mammography Alfredo Gee MD Work Phone: Start: 08-22-2017 H/O: hysterectomy History of hysterectomy Alfredo Dash Work Phone: Plan of Treatment Date Care Activity Detail Author Start: 07-03-2028 DTaP/Tdap/Td vaccine (2 - Td or Tdap) DTaP/Tdap/Td vaccine (2 - Td or Tdap) Kali Ochoa [facility] Start: 09-17-2024 Influenza vaccination Influenza Vacc ine (#1) [facility] Comment on above: Postponed from 11/19 (Patient Refused) Start: 09-06-2024 End: 09-06-2024 Patient encounter procedure 09/06/2024 3:00 PM EDT Office Visit [facility] [address] [place] [address] Mariano Brownlee, GREEN CH[employer] P[employer] - AUT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 [address] [place] [address] [address] [place] [address] 3-4M with pelvic [facility] Comment on above: 3-4M with pelvic Start: 05-28-2024 End: 05-28-2024 Telemedicine consultation with patient 05/28/2024 4:30 PM EDT Telemedicine [facility] [address] [facility] [address] [place] [address] Alfredo Gee MD [address] [facility] [address] [place] [address] [facility] Start: 05-18-2024 End: 12-18-2024 Comprehensive metabolic 2000 panel - Serum or Plasma Comprehensive metabolic panel Lab Routine Primary hypertension (CMS/HCC) Hypertensive nephropathy (CMS/HCC) Expected: 05/18/2024, Expires: 12/18/2024 [facility] Work Phone: Comment on above: Expected: 05/18/2024 , Expires: 12/18/2024 Start: 05-18-2024 End: 12-18-2024 Lipid 1996 panel - Serum or Plasma Lipid panel Lab Routine Screening, lipid Expected: 05/18/2024, Expires: 12/18/2024 [facility] Comment on above: Expected: 05/18/2024 , Expires: 12/18/2024 Start: 11-20-2023 COVID-19 Vaccine ( season) COVID[facility] ( [facility] Start: 11-20-2023 Influenza vaccination Influenza Vacc ine (#1) [facility] Start: 11-19-2022 Influenza vaccination Influenza Vacc ine (#1) [facility] Start: 2021 Pneumococcal 50+ yea rs Vaccine (1 of 1 - PCV) Pneumococcal 50+ years Vaccine (1 of 1 - PCV) [facility] Start: 2021 Shingles vaccine (1 of 2) Shingles vaccine (1 of 2) [facility] Start: 08-23-2020 Screening for malign ant neoplasm of breast Breast cancer screen [facility] Start: 08-24-2019 Screening for malign ant neoplasm of breast Mammogram [facility] Start: 2016 Screening for malign ant neoplasm of colon [facility] Start: 2011 Lipid panel [facility] Start: 1989 Hepatitis C screening Hepatitis C sc reen [facility] Start: 1986 HIV screening HIV screen [facility] Start: 1983 Depression Screen Depression Screen [facility] Start: 1971 Screening for malign ant neoplasm of colon [facility] End: 05-10-2024 Culture, Urine [facility] Comment on above: 1 Occurrences starti ng 05/10/2024 until 05/10/2024 Immunizations Immunization Date Immunization Notes Care Provider Fa cili 01-21-2022 influenza, injectabl e, quadrivalent, preservative free Alfredo Gee MD Work Phone: [facility] 01-21-2022 influenza virus vacc ine, unspecified formulation Alfredo Gee MD Work Phone: [facility] 01-08-2019 hepatitis A and hepa titis B vaccine Alfredo Gee MD Work Phone: [facility] 08-06-2018 hepatitis A and hepa titis B vaccine Alfredo Gee MD Work Phone: [facility] 07-03-2018 hepatitis A and hepa titis B vaccine Alfredo Gee MD Work Phone: [facility] 07-03-2018 measles, mumps and rubella virus vaccine Alfredo Gee MD Work Phone: [facility] 07-03-2018 tetanus toxoid, redu wilder diphtheria toxoid, and acellular pertussis vaccine, adsorbed Alfredo Gee MD Work Phone: [facility] Payers Date Payer Category Payer [employer] [id number] 2022 Unknown 2022 Unknown [id number] 1971 Unknown [id number] 647 1971 Unknown [id number] [id number]. 647 1971 Unknown [id number] [id number]. 593 1971 Unknown [id number] [id number]. 593 1971 Unknown [id number] [id number]. 1259 1971 Unknown [id number] [id number]. 1259 1971 Unknown [id number] [id number]. 1259 1971 Unknown [id number] [id number]. 1259 1971 Unknown [id number] [id number]. 173 1959 Self-pay 1959 Unknown [id number] Unknown [id number]. 593 Social History Date Type Detail Facility Start: 09-29-2022 End: 05-12-2023 Tobacco smoking status [facility] Never smoked tobacco [facility] Start: 09-29-2022 End: 05-12-2023 Tobacco use and exposure Smokeless tobacco non-user [facility] Start: 03-23-2023 End: 05-23-2023 Alcohol intake Lifetime non-drinker (finding) [facility] Start: 01-24-2023 End: 05-10-2024 History of Social function [facility] Start: 01-24-2023 End: 05-10-2024 Humiliation, Afraid, Rape, and Kick questionnaire [HARK] [facility] Within the last year , have you been afraid of your partner or ex-partner? No [facility] How often do you att end meetings of the clubs or organizations you belong to? Patient refused [facility] Are you now , , , , never or living with a partner? [facility] How often to you hav e a drink containing alcohol? Monthly or less [facility] How many standard dr inks containing alcohol do you have on a typical day? 1 or 2 [facility] How often do you hav e 6 or more drinks on 1 occasion? Never [facility] Do you feel stress - tense, restless, nervous, or anxious, or unable to sleep at night because your mind is troubled all the time - these days [OSQ] Rather much [facility] (I/We) worried wheth er (my/our) food would run out before (I/we) got money to buy more. Never true [facility] Start: 01-23-2023 Alcohol Comment Caffeine intake : 1-2 cups per day, coffee [facility] Start: 1970 Sex Assigned At Female [facility] Start: 09-29-2022 Gender identity Identifies as female gender (finding) [facility] Start: 09-29-2022 Sexual orientation Heterosexual (finding) [facility] Start: 05-10-2024 Alcoholic beverage intake Current drinker of alcohol (finding) [facility] Start: 05-12-2023 Alcohol Comment occasional/rare [facility] Start: 1970 Sex assigned at Not on file [employer] History of Present illness Narrative 12-19-2023 Alfredo Gee MD - 12/19/2023 4:00 PM EDT Note Date & Type Note Facility 12-19-2023 History of Presen t illness Narrative Images from the original note were not included. Patient ID: Isabel Bauman is a 53 y.o. female who presents for: Hypertension Patient is here for follow-up of elevated blood pressure. She is not exercising and is adherent to a low-salt diet. Blood pressure is well controlled at home. Cardiac symptoms: none. Patient denies chest pain, dyspnea, and irregular heart beat. Cardiovascular risk factors: hypertension. Use of agents associated with hypertension: none. History of target organ damage: none. Review of Systems Constitutional: Negative for activity change and fatigue. Respiratory: Negative for cough, shortness of breath and wheezing. Cardiovascular: Negative for chest pain, palpitations and leg swelling. Neurological: Negative for light-headedness and headaches. Objective The patient is pleasant and in no acute distress The patient does not appear to have a gross neurologic deficit. The patient has good eye contact and clear speech Visit Vitals OB Status Postmenopausal Smoking Status Never From her previous Dhf [employer] message 122/86 121/89 124/81 125/82 126/78 117/77 123/81 No Known Allergies Current Outpatient Medications on File Prior to Visit Medication Sig Dispense Refill Black Cohosh 40 MG capsule Take 2 tablets by mouth Daily calcium citrate 1040 MG tablet Take 1,200 mg by mouth in the morning and 1,200 mg before bedtime. cephalexin (Keflex) 500 MG capsule Take two caps evening prior to appointment, take two caps one hour prior to appointment 4 capsule 2 cholecalciferol (Vitamin D-3) 25 MCG (1000 UT) capsule Take 1,000 Units by mouth in the morning and 1,000 Units before bedtime. Ginkgo Biloba 40 MG tablet Take 120 mg by mouth in the morning and 120 mg before bedtime. losartan (Cozaar) 100 MG tablet Take 1 tablet (100 mg) by mouth Daily 90 tablet 0 Misc Natural Products (Glucosamine Chond Double Str) tablet as directed Orally Multiple Vitamins-Minerals (Multi For Her 50+) tablet 1 (one) time each day at the same time. nebivolol (Bystolic) 10 MG tablet Take 1 tablet (10 mg) by mouth Daily 30 tablet 0 vit A,C and H-fvndey-nofimkxf (Ocuvite) tablet as directed Orally [DISCONTINUED] nebivolol (Bystolic) 10 MG tablet Take 1 tablet (10 mg) by mouth Daily 90 tablet 0 No current facility-administered medications on file prior to visit. 1. Primary hypertension (CMS/HCC) Chronic problem, stable to goal. Renew prescription - losartan (Cozaar) 100 MG tablet; Take 1 tablet (100 mg) by mouth Daily Dispense: 90 tablet; Refill: 0 - nebivolol (Bystolic) 10 MG tablet; Take 1 tablet (10 mg) by mouth Daily Dispense: 90 tablet; Refill: 1 - Comprehensive metabolic panel; Future - Comprehensive metabolic panel 2. Screening, lipid - Lipid panel; Future - Lipid panel 3. Hypertensive nephropathy (CMS/HCC) Chronic problem demonstrating end-organ damage - Comprehensive metabolic panel; Future - Comprehensive metabolic panel documented in this encounter [facility] Evaluation note Note Date & Type Note Facility Evaluation note Diagnosis Primary hypertension (CMS/HCC)- Primary Unspecified essential hypertension Screening, lipid Hypertensive nephropathy (CMS/HCC) Unspecified hypertensive kidney disease with chronic kidney disease stage I through stage IV, or unspecified documented in this encounter [facility] Evaluation note Note Date & Type Note Facility Evaluation note Diagnosis Primary hypertension (CMS/HCC) Unspecified essential hypertension documented in this encounter [facility] Evaluation note Note Date & Type Note Facility Evaluation note Diagnosis Microscopic hematuria Urge incontinence documented in this encounter [facility] Summary Purpose Family History No Family History Records FoundNo Family History Records FoundNo Family History Records FoundNo Family History Records FoundNo Family History Records FoundNo Family History Records Found Advance Directives No Advanced Directives Records FoundDocuments on File Type Date Recorded Patient Armor Reconnaissance Vehicle Crewman Expl anation Advance Directives and Living Will 05/26/2022 2020-07-09 Power Of Electrical Manufacturing Engineer Advance Directives and Living Will 05/26/2022 2020-07-09 Additional Source Comments INFORMATION SOURCE (unrecogn ized section and content) DATE CREATED AUTHOR 03/25/2018 [facility] DATE CREATED AUTHOR AUTHOR'S ORGANIZ ATION 11/03/2019 [facility] DATE CREATED AUTHOR AUTHOR'S ORGANIZ ATION 09/27/2020 [facility] DATE CREATED AUTHOR AUTHOR'S ORGANIZ ATION 01/25/2022 [facility] DATE CREATED AUTHOR AUTHOR'S ORGANIZ ATION 12/20/2023 [facility] EPIC DATE CREATED AUTHOR AUTHOR'S ORGANIZ ATION 05/12/[address] [facility]ital Care Teams (unrecognized sec tion and content) Deputy Sheriff Generalist Relationship Specialty Start Date End Date Alfredo Gee MD [address] [place] [address] (Fax) PCP - General Family Medicine 09/29/22 Deputy Sheriff Generalist Relationship Specialty Start Date End Date Alfredo Gee MD [address] [place] [address] (Fax) PCP - General Family Medicine 09/29/22 Deputy Sheriff Generalist Relationship Specialty Start Date End Date Alfredo Gee MD [address] [place] [address] (Fax) PCP - General Family Medicine 09/29/22 Deputy Sheriff Generalist Relationship Specialty Start Date End Date Alfredo Gee MD [address] [facility] [address] [place] [address] (Fax) PCP - General Family Medicine 09/29/22 Deputy Sheriff Generalist Relationship Specialty Start Date End Date Alfredo Gee MD PCP - General 04/11/23 Reason for Visit (unrecogniz ed section and content) Reason Comments Hypertension Reason Onset Date Comments Med Refill 11/15/2023 FOR RECORDS PERTAINING TO PATIENTS WHO ARE OR HAVE BEEN ENROLLED IN A CHEMICAL DEPENDENCY/SUBSTANCEABUSE PROGRAM, SOME INFORMATION MAY BE OMITTED. This clinical summary was aggregated from multiple sources. Caution should be exercised in using it in the provision of clinical care. This summary normalizes information from multiple sources, and as a consequence, information in this document may materially change the coding, format and clinical context of patient data. In addition, data may be omitted in some cases. CLINICAL DECISIONS SHOULD BE BASED ON THE PRIMARY CLINICAL RECORDS. [facility]. provides no warranty or guarantee of the accuracy or completeness of information in this document.
[2024-05-18 07:15] LABS: Basophils Percent Auto 0.5 % (0.2-2.0); Eosinophils Absolute Auto 0.2 10^3/uL (0.0-0.7); Eosinophils Percent Auto 2.9 % (0.9-7.0); Hematocrit 36.8 % (36.0-48.0); Hemoglobin 11.8 g/dL (12.0-16.0); Immature Granulocytes Abs Auto 0.01 10^3/uL (0.00-0.03); Immature Granulocytes Pct Auto 0.2 % (0.0-0.5); Lymphocytes Absolute Auto 1.8 10^3/uL (1.2-3.8); Lymphocytes Percent Auto 33.3 % (20.5-60.0); Mean Corpuscular HGB Conc 32.1 g/dL (29.9-35.2); Mean Corpuscular Hemoglobin 28.5 pg (26.7-34.0); Mean Corpuscular Volume 88.9 fL (81.0-99.0); Mean Platelet Volume 12.9 fL (9.5-13.5); Monocytes Absolute Auto 0.4 10^3/uL (0.3-0.8); Monocytes Percent Auto 7.8 % (1.7-12.0); Neutrophils Percent Auto 55.3 % (43.0-75.0); Platelet Count 166 10^3/uL (150-450); Red Blood Count 4.14 10^6/uL (4.20-5.40); Red Cell Distribution Width 12.8 % (11.0-15.0); White Blood Count 5.5 10^3/uL (4.0-11.0)
[2024-05-18 07:50] LABS: Estimated Average Glucose 111 mg/dL; Glycohemoglobin A1C 5.5 % (4.5-6.2)
[2024-05-18 08:36] LABS: Anion Gap 9.5; Carbon Dioxide 29.2 mmol/L (21.0-32.0); Chloride 105 mmol/L (98-107); Glucose 84 mg/dL (74-106); Potassium 3.7 mmol/L (3.5-5.1); Sodium 140 mmol/L (136-145)
[2024-05-18 08:37] LABS: Alanine Aminotransferase 21 U/L (14-59); Albumin Globulin Ratio 1.2; Albumin Level 3.7 g/dL (3.4-5.0); Alkaline Phosphatase 79 U/L (46-116); Aspartate Amino Transferase 14 U/L (15-37); Bilirubin Total 0.5 mg/dL (0.2-1.0); Calcium 8.9 mg/dL (8.5-10.1); Cholesterol 219 mg/dL (<=200); Estimated GFR (African America >60 (>=60 mL/min/1.73m^2); Estimated GFR (Non-African Ame >60 (>=60 mL/min/1.73m^2); Globulin 3.2 g/dL; HDL Cholesterol 73 mg/dL (40-60); Total Protein 6.9 g/dL (6.4-8.2); Triglycerides 55 mg/dL (<=150)
[2024-05-18 08:38] LABS: Thyroid Stimulating Hormone 1.505 uIU/mL (0.358-3.740)
== END 2024-05-18 06:57 | disposition home or self-care (01) ==
LOC: LAB 06:58
PROVIDERS: PCP Family Medicine; Visit Provider Family Medicine
DX: Z00.00 Encounter for general adult medical examination without abnormal findings (principal); Z13.220 Encounter for screening for lipoid disorders; I12.9 Hypertensive chronic kidney disease with stage 1 through stage 4 chronic kidney disease, or unspecified chronic kidney disease
CPT/HCPCS: 36415; 80053; 80061; 83036; 84443; 85025